=== PATIENT | male | born 1945 | race Caucasian/White ===

== ENCOUNTER 2019-08-14 | Emergency (ER) | payer MEDICARE ==
[2019-08-14 16:51] LABS: HEMOGLOBIN 11.7 g/dl (14.0-18.0); IMMATURE GRANULOCYTES 0.2 % (0.0-5.0); MEAN CELL VOLUME 111.1 fL CALC (80.0-100.0); MEAN CORPUSCULAR HGB 37.1 pG CALC (26.0-32.0); MEAN CORPUSCULAR HGB CONC 33.4 g/L CALC (32.0-36.0); NEUT# 2.49 thou/uL (1.82-7.42); RED BLOOD COUNT 3.15 mill/uL (4.70-6.10); RED CELL DISTRI WIDTH 12.8 % (11.5-15.5)
[2019-08-14 17:22] LABS: ALBUMIN 3.8 g/dL (3.2-5.0); ALKALINE PHOSPHATASE 58 u/l (38-126); ANION GAP 10 (6-22 (CALC)); BILIRUBIN, TOTAL 0.5 mg/dL (0.0-1.4); BUN 20 mg/dL (8-23); BUN/CREATININE RATIO 25 (12-20 (CALC)); CARBON DIOXIDE 29 mmol/l (22-30); CHLORIDE 100 mmol/l (95-108); CREATININE 0.8 mg/dL (0.7-1.3); GFR > 60 ML/MIN (>=60 (CALC)); GFR FOR AFR.AMER. > 60 ML/MIN (>=60 (CALC)); POTASSIUM 4.3 mmol/l (3.5-5.1); SGOT/AST 21 u/l (19-48); SODIUM 135 mmol/l (137-146); TOTAL PROTEIN 6.7 g/dL (6.3-8.2)
[2019-08-14] MEDS ORDERED: FOLIC ACID1 M1 PO (18:06)
[2019-08-14] MEDS ORDERED: LEVOTHYROXIN150 MC1 PO (18:06)
[2019-08-14] MEDS ORDERED: SINGULAIR10 MG PO (18:07)
[2019-08-14] MEDS ORDERED: ALBUTEROL0.5 % IN (18:08)
[2019-08-14] MEDS ORDERED: SPIRIVA RE1.25 MCG/A IN (18:08)
[2019-08-14] MEDS ORDERED: SYMBICORT 80-4.5MCG IN (18:09)
[2019-08-14] MEDS ORDERED: VIT B-COMPLX100 MG IJ (18:10)
[2019-08-14] MEDS ORDERED: MEMANTINE HYDROC5 MG PO (18:11)
[2019-08-14 18:27] LABS: URINE BILIRUBIN - DIPSTICK NEGATIVE (NEGATIVE); URINE BLOOD DIPSTICK NEGATIVE (NEGATIVE); URINE COLOR YELLOW; URINE GLUCOSE - DIPSTICK NEGATIVE (NEGATIVE); URINE KETONE NEGATIVE (NEGATIVE); URINE LEUK ESTERASE NEGATIVE (NEGATIVE); URINE NITRITE - DIPSTICK NEGATIVE (Negative); URINE PH 5.5 (4.5-8.0); URINE PROTEIN - DIPSTICK NEGATIVE (NEG-TRACE)
[2019-08-20] MEDS ORDERED: COREG6.25 MG PO (11:09)
[2019-08-20] MEDS ORDERED: SYNTHROID150 MCG PO (11:10)
[2019-08-20] MEDS ORDERED: B-121000 MC1 IM (11:10)
[2020-02-15] MEDS ORDERED: DIGOXIN0.125 MG PO (10:57)
[2020-02-15] MEDS ORDERED: PROVENTIL HFA IN (10:57)
[2020-02-15] MEDS ORDERED: ELIQUIS2.5 MG PO (10:59)
== END 2019-08-14 19:00 | disposition home or self-care (01) ==
DX: K40.90 Unilateral inguinal hernia, without obstruction or gangrene, not specified as recurrent (principal); J43.9 Emphysema, unspecified; G30.9 Alzheimer's disease, unspecified; F02.80 Dementia in other diseases classified elsewhere, unspecified severity, without behavioral disturbance, psychotic disturbance, mood disturbance, and anxiety
CPT/HCPCS: Q9967

== ENCOUNTER 2020-02-22 08:05 | Day surgery (SDC) | payer MEDICARE ==
[~2020-02-22 08:05] MED LIST: ALBUTEROL0.5 % IN; B-121000 MC1 IM; COREG6.25 MG PO; DIGOXIN0.125 MG PO; ELIQUIS2.5 MG PO; FOLIC ACID1 M1 PO; LEVOTHYROXIN150 MC1 PO; MEMANTINE HYDROC5 MG PO; PROVENTIL HFA IN; SINGULAIR10 MG PO; SPIRIVA RE1.25 MCG/A IN; SYMBICORT 80-4.5MCG IN; SYNTHROID150 MCG PO; VIT B-COMPLX100 MG IJ
[2020-02-22] MEDS ORDERED: PERCOCET 5/325M1 TAB PO (10:12)
[2020-02-22 11:12] VITALS: BP 128/69
== END 2020-02-22 12:00 | disposition home or self-care (01) ==
LOC: ORM 08:05
PROVIDERS: ATTEND Surgery
PROC: 0YU60JZ Supplement Left Inguinal Region with Synthetic Substitute, Open Approach (ICD-10-PCS; principal; 2020-02-22)
DX: K40.20 Bilateral inguinal hernia, without obstruction or gangrene, not specified as recurrent (principal); E83.119 Hemochromatosis, unspecified; Z99.81 Dependence on supplemental oxygen; Z11.59 Encounter for screening for other viral diseases
CPT/HCPCS: C9290; J0131; J1100

== ENCOUNTER 2020-02-24 10:16 | Inpatient (IN) | payer MEDICARE ==
[~2020-02-24] VITALS: Ht 167.6 cm; Wt 63.8 kg
[~2020-02-24 10:16] MED LIST changes: +PERCOCET 5/325M1 TAB PO
--- NOTE | 2020-02-24 10:22 | NUR ---
PATIENT TO ROOM VIA WHEELCHAIR AND PHYSICIAN NOTIFIED OF PATIENT STATUS
[2020-02-24 10:55] LABS: URINE BILIRUBIN - DIPSTICK NEGATIVE (NEGATIVE); URINE BLOOD DIPSTICK NEGATIVE (NEGATIVE); URINE COLOR YELLOW; URINE GLUCOSE - DIPSTICK NEGATIVE (NEGATIVE); URINE KETONE NEGATIVE (NEGATIVE); URINE LEUK ESTERASE NEGATIVE (NEGATIVE); URINE NITRITE - DIPSTICK NEGATIVE (Negative); URINE PROTEIN - DIPSTICK NEGATIVE (NEG-TRACE)
[2020-02-24 10:57] LABS: IMMATURE GRANULOCYTES 0.4 % (0.0-5.0); MEAN CELL VOLUME 115.4 fL CALC (80.0-100.0); MEAN CORPUSCULAR HGB 36.1 pG CALC (26.0-32.0); MEAN CORPUSCULAR HGB CONC 31.3 g/dL CAL (32.0-36.0); NEUT# 3.76 thou/uL (1.82-7.42); RED BLOOD COUNT 2.8 mill/uL (4.70-6.10); RED CELL DISTRI WIDTH 13.1 % (11.5-15.5)
[2020-02-24 10:58] LABS: HEMATOCRIT 32.3 % (39.0-50.0); HEMOGLOBIN 10.1 g/dl (14.0-18.0)
[2020-02-24 11:05] LABS: ALBUMIN 3.5 g/dL (3.2-5.0); ALKALINE PHOSPHATASE 57 u/l (38-126); ANION GAP 7 (6-22 (CALC)); BUN 16 mg/dL (8-23); BUN/CREATININE RATIO 20 (12-20 (CALC)); CARBON DIOXIDE 33 mmol/l (22-30); CHLORIDE 101 mmol/l (95-108); CREATININE 0.8 mg/dL (0.7-1.3); GFR > 60 ML/MIN (>=60 (CALC)); GFR FOR AFR.AMER. > 60 ML/MIN (>=60 (CALC)); POTASSIUM 4.1 mmol/l (3.5-5.1); SGOT/AST 19 u/l (19-48); SODIUM 136 mmol/l (137-146); TOTAL PROTEIN 6.4 g/dL (6.3-8.2)
[2020-02-24 11:11] LABS: BILIRUBIN, TOTAL 0.4 mg/dL (0.0-1.4)
--- NOTE | 2020-02-24 11:14 | NUR ---
PT PRESENTS WITH PAIN OF 0/10 WHEN AT REST LOCATED IN THE LEFT INGUINAL AREA. WHEN PT MOVES HE HAS PAIN OF 9/10. PT HAD SURG 02/22/20 TO REPAIR LEFT INGUINAL HERNIA. AROUND INCISION REDNESS, SWELLING, IS NOTED AND IS HOT TO THE TOUCH. NO DRAINAGE NOTED AT INCISION. AFIBRILE. AOX4. PT IS NOT IN ANY DISTRESS AND VITALS STABLE. DENIES SOB OR CHEST PAINS. PT PLACED ON O2 BECAUSE HE USUALLY IS ON O2 AT HOME. WILL CONTINUE TO MONITOR.
--- NOTE | 2020-02-24 12:30 | NUR ---
PT LAYING IN STRETCHER REQUESTING WARM BLANKET, REQUEST GRANTED. CALL LIGHT WITHIN REACH VITALS STABLE.
--- NOTE | 2020-02-24 13:40 | NUR ---
PT RESTING ON STRETCHER, ASKED TO BE REPOSITIONED. UPDATED ON PLAN OF CARE AND WAIT TIME.
--- NOTE | 2020-02-24 14:56 | NUR ---
REPORT REC FROM RACHEL ROSA.
--- NOTE | 2020-02-24 14:57 | NUR ---
GAVE REPORT TO PASCUAL
--- NOTE | 2020-02-24 15:10 | NUR ---
PT TRANSPORTED TO [facility] SURG STABLE AND IN NO DISTRESS. CARE ASSUMED TO OLIVIA Admission Note Report Given to: Transported by: Wheelchair X Stretcher Transported with: X Nurse Transporter Patent IV X O2 X Paper Cone Maker Location: ICU X MS2 WITH PATENT IV
--- NOTE | 2020-02-24 15:19 | NUR ---
PT ARRIVED VIA STRETCHER ACCOMPANIED BY RACHEL ROSA. PT A&O X3. PT POOR HISTORIAN, STATES "ASK MY ". O2 VIA NC @3L IN PLACE, PER PT HE IS O2 DEPENDENT AT HOME AT 2L. PT ADMITS TO HAVE SOME EPISODES OF FORGETFULLNESS. AFIB HEARD UPON AUSCULTATION WITH CLEAR/DIMINISHED BREATH SOUNDS. CANE USED AMBULATION AID AT HOME. BILAT HEARING AIDES IN PLACE WITH BOTH UPPER AND LOWER DENTURES IN PLACE AT WELL. LT INGUINAL HERNIA INCISION NOTED, WITH REDNESS,WARMTH AND BRUISING NOTED TO SITE AND SCROTUM. NO ACTIVE DRAINAGE NOTED. DERMABOND IN PLACE. ORIENTED PT TO ROOM. [facility] REFUSED. CALL LIGHT IN REACH. CONTINUE TO MONITOR.
[2020-02-24 15:34] VITALS: BP 150/82
--- NOTE | 2020-02-24 16:12 | NUR ---
PHONE CALL REC FROM PTS INES. INES ABLE TO PROVIDE PAST MED HX. AFIB HAS BEEN NEW ON ONSET. PER INES PT HAS HX OF DEMENTIA.
[2020-02-24 19:00] VITALS: BP 126/65
--- NOTE | 2020-02-24 19:10 | NUR ---
REPORT FROM ADAM RHOADES. PT NOTED SITTING UP AT BEDSIDE. ALERT AND ORIENTED. NO APPARENT DISTRESS NOTED. 02 @ 3L/M VIA NC. SHELL ASSEMBLER ON PLACE. IV SITE APPEARS HEALTHY WITH IV FLUIDS INFUSING. PT DENIES ANY PAIN OR DISCOMFORT AT THIS TIME. BRUISING NOTED TO LEFT GROIN AND SCROTUM. DISCUSSED POC. PT VERBALIZED UNDERSTANDING. CALL LIGHT WITHIN REACH. WILL CONTINUE TO MONITOR.
--- NOTE | 2020-02-24 23:18 | NUR ---
PT RESTING IN BED NO APPARENT DISTRESS NOTED. PT WAKES EASILY. DENIES ANY PAIN OR DISCOMFORT. WARM COMPRESS PROVIDED AT THIS TIME. PT DENIES ANY OTHER WANTS OR NEEDS. CALL LIGHT WITHIN REACH. WILL CONTINUE TO MONITOR.
[2020-02-24 23:30] VITALS: BP 142/79
--- NOTE | 2020-02-25 03:23 | NUR ---
PT RESTING IN BED. NO APPARENT DISTRESS NOTED. RESPIRATIONS EVEN AND UNLABORED. CALL LIGHT WITHIN REACH. WILL CONTINUE TO MONITOR.
[2020-02-25 04:00] VITALS: BP 128/78
[2020-02-25 05:06] LABS: HEMOGLOBIN 9.8 g/dl (14.0-18.0); IMMATURE GRANULOCYTES 0.4 % (0.0-5.0); MEAN CORPUSCULAR HGB CONC 31.6 g/dL CAL (32.0-36.0); NEUT# 3.42 thou/uL (1.82-7.42); RED BLOOD COUNT 2.72 mill/uL (4.70-6.10); RED CELL DISTRI WIDTH 12.8 % (11.5-15.5)
[2020-02-25 05:35] LABS: ALBUMIN 3.3 g/dL (3.2-5.0); ALKALINE PHOSPHATASE 55 u/l (38-126); ANION GAP 7 (6-22 (CALC)); BUN 11 mg/dL (8-23); BUN/CREATININE RATIO 14 (12-20 (CALC)); CARBON DIOXIDE 32 mmol/l (22-30); CHLORIDE 99 mmol/l (95-108); CREATININE 0.8 mg/dL (0.7-1.3); GFR > 60 ML/MIN (>=60 (CALC)); GFR FOR AFR.AMER. > 60 ML/MIN (>=60 (CALC)); POTASSIUM 4.2 mmol/l (3.5-5.1); SGOT/AST 15 u/l (19-48); SODIUM 134 mmol/l (137-146); TOTAL PROTEIN 5.9 g/dL (6.3-8.2)
[2020-02-25 05:37] LABS: BILIRUBIN, TOTAL 0.7 mg/dL (0.0-1.4)
[2020-02-25 07:27] VITALS: BP 147/85
--- NOTE | 2020-02-25 07:27 | NUR ---
PT LAYING IN BED. A&O X3. NO DISTRESS NOTED. O2 VIA NC @3L IN PLACE. CLEAR/DIMINISHED BREATH SOUNDS UPON AUSCULTATION. SKIN SURROUNDING INGUINAL HERNIA INCISION, ERYTHEMA STILL NOTED WITH BRUISING TO SCROTUM, BUT LESS THAN YESTERDAY, SLIGHTLY WARM TO THE TOUCH. PT STATES PAIN IS 4/10 AND DID NOT WANT ANY PAIN MEDICATION. WARM COMPRESS APPLIED. NO OTHER NEEDS AT THIS TIME. ASSESSMENT COMPLETED. DISCUSSED POC. CALL LIGHT IN REACH. CONTINUE TO MONITOR.
--- NOTE | 2020-02-25 08:07 | NUR ---
Patient is screened for rehab intervention. He is still being worked up for postop infection and therefore we suresh hold off on recommendations and defer to medical as well as follow him in interdisciplinary team meetings
--- NOTE | 2020-02-25 10:35 | NUR ---
PER PT HE WOULD LIKE TO WAIT UNTIL HIS ARRIVED BEFORE TAKING SENNA.
[2020-02-25 10:59] VITALS: BP 130/76
--- NOTE | 2020-02-25 12:12 | NUR ---
PT SITTING ON THE SIDE OF THE BED EATING LUNCH. NO DISTRESS OR NEEDS AT THIS TIME. CALL LIGHT IN REACH. CONTINUE TO MONITOR.
[2020-02-25 15:14] VITALS: BP 129/58
--- NOTE | 2020-02-25 17:53 | NUR ---
PT SITTING IN BED. NO DISTRESS OR NEEDS AT THIS TIME. CALL LIGHT IN REACH. CONTINUE TO MONITOR.
--- NOTE | 2020-02-25 19:10 | NUR ---
REPORT FROM ADAM RHOADES. PT NOTED RESTING IN BED. ALERT AND ORIENTED. NO APPARENT DISTRESS NOTED. 02 @ 3L/M VIA SD. TRUCK MANAGER ON PLACE. IV SITE APPEARS HEALTHY WITH IV FLUIDS INFUSING. PT DENIES ANY PAIN OR DISCOMFORT AT THIS TIME. BRUISING NOTED TO LEFT GROIN AND SCROTUM. DISCUSSED POC. PT VERBALIZED UNDERSTANDING. CALL LIGHT WITHIN REACH. WILL CONTINUE TO MONITOR.
[2020-02-25 19:20] VITALS: BP 125/70
--- NOTE | 2020-02-25 21:01 | NUR ---
PT MEDICATED ORDERED. NO APPARENT RESPIRATORY DISTRESS NOTED. 300ML CLEAR YELLOW URINE EMPTIED FROM URINAL AT THIS TIME. PT DENIES ANY CURRENT WANTS OR NEEDS. CALL LIGHT WITHIN REACH. WILL CONTINUE TO MONITOR.
[2020-02-25 23:35] VITALS: BP 132/79
--- NOTE | 2020-02-26 01:20 | NUR ---
PT RESTING IN BED WITH EYES CLOSED. NO APPARENT DISTRESS NOTED. RESPIRATIONS EVEN AND UNLABORED. CALL LIGHT WITHIN REACH. WILL CONTINUE TO MONITOR.
[2020-02-26 04:00] VITALS: BP 123/73
--- NOTE | 2020-02-26 05:44 | NUR ---
PT RESTING IN BED WITH EYES CLOSED. NO APPARENT DISTRESS NOTED. RESPIRATIONS EVEN AND UNLABORED. CALL LIGHT WITHIN REACH. WILL CONTINUE TO MONITOR.
[2020-02-26 05:58] LABS: ANION GAP 7 (6-22 (CALC)); BUN 11 mg/dL (8-23); BUN/CREATININE RATIO 13 (12-20 (CALC)); CARBON DIOXIDE 33 mmol/l (22-30); CHLORIDE 99 mmol/l (95-108); CREATININE 0.8 mg/dL (0.7-1.3); GFR > 60 ML/MIN (>=60 (CALC)); GFR FOR AFR.AMER. > 60 ML/MIN (>=60 (CALC)); MAGNESIUM 1.9 mg/dL (1.6-2.3); SODIUM 135 mmol/l (137-146)
[2020-02-26 06:05] LABS: HEMATOCRIT 30.8 % (39.0-50.0); HEMOGLOBIN 9.9 g/dl (14.0-18.0); MEAN CELL VOLUME 112.4 fL CALC (80.0-100.0); MEAN CORPUSCULAR HGB 36.1 pG CALC (26.0-32.0); MEAN CORPUSCULAR HGB CONC 32.1 g/dL CAL (32.0-36.0); RED BLOOD COUNT 2.74 mill/uL (4.70-6.10); RED CELL DISTRI WIDTH 12.6 % (11.5-15.5)
[2020-02-26 07:23] VITALS: BP 105/61
--- NOTE | 2020-02-26 07:23 | NUR ---
PT SITTING ON THE SIDE OF THE BED. A&O X3. O2 VIA NC @ 3L. NO DISTRESS OR NEEDS AT THIS TIME. PT REPORTS TO BE FEELING WELL THIS MORNING. CURRENTLY REMAINS AFEBRILE. SURROUNDING SKIN SURROUNDING THE HERNIA REPAIR BETTER IN APPEARANCE COMPARED TO YESTERDAY, NOT WARM TO THE TOUCH THIS MORNING, BRUISING STILL NOTED. NO OTHER NEEDS AT THIS TIME. ASSESSMENT COMPLETED. DISCUSSED POC. CALL LIGHT IN REACH. CONTINUE TO MONITOR.
[2020-02-26] MEDS ORDERED: BACTRIM DS1 TAB PO (10:37)
[2020-02-26 11:28] VITALS: BP 138/80
[2020-02-26 16:12] VITALS: BP 140/87
--- NOTE | 2020-02-26 16:14 | NUR ---
Discharge instructions given. Patient verbalizes understanding of same. Discharged in stable condition via Wheelchair to Home accompanied by staff and . All belongings sent with pt.
== END 2020-02-26 16:14 | disposition home or self-care (01) | DRG 863 ==
LOC: ED 10:16 → ED-I 13:30 → ED 13:53 → MS2 13:54
PROVIDERS: Nurse Practitioner; Student in an Organized Health Care Education/Training Program; ADMIT Internal Medicine; ATTEND Internal Medicine
DX: T81.41XA Infection following a procedure, superficial incisional surgical site, initial encounter (principal); L03.314 Cellulitis of groin; J44.9 Chronic obstructive pulmonary disease, unspecified; G30.9 Alzheimer's disease, unspecified; F02.80 Dementia in other diseases classified elsewhere, unspecified severity, without behavioral disturbance, psychotic disturbance, mood disturbance, and anxiety; E03.9 Hypothyroidism, unspecified; I48.91 Unspecified atrial fibrillation; E83.119 Hemochromatosis, unspecified; E53.8 Deficiency of other specified B group vitamins; Y83.8 Other surgical procedures as the cause of abnormal reaction of the patient, or of later complication, without mention of misadventure at the time of the procedure; Z79.01 Long term (current) use of anticoagulants; Z87.891 Personal history of nicotine dependence; Z11.59 Encounter for screening for other viral diseases
CPT/HCPCS: Q9967

== ENCOUNTER 2020-09-25 13:01 | Inpatient (IN) | payer MEDICARE ==
[~2020-09-25] VITALS: Ht 167.6 cm; Wt 60.8 kg
[2020-09-25] VITALS (7 sets, daily range): BP systolic 103–168; BP diastolic 57–79
[~2020-09-25 13:01] MED LIST changes: +BACTRIM DS1 TAB PO
--- NOTE | 2020-09-25 13:05 | NUR ---
PT TAKEN TO HIS ROOM VIA WHEELCHAIR
--- NOTE | 2020-09-25 13:28 | NUR ---
STROKE ALERT CALLED
[2020-09-25 13:58] LABS: GFR > 60 ML/MIN (>=60 (CALC)); GFR FOR AFR.AMER. > 60 ML/MIN (>=60 (CALC))
[2020-09-25 13:59] LABS: HEMATOCRIT 34.3 % (39.0-50.0); HEMOGLOBIN 10.7 g/dl (14.0-18.0); IMMATURE GRANULOCYTES 1.1 % (0.0-5.0); MEAN CELL VOLUME 118.3 fL CALC (80.0-100.0); MEAN CORPUSCULAR HGB 36.9 pG CALC (26.0-32.0); MEAN CORPUSCULAR HGB CONC 31.2 g/dL CAL (32.0-36.0); NEUT# 3.12 thou/uL (1.82-7.42); RED BLOOD COUNT 2.9 mill/uL (4.70-6.10); RED CELL DISTRI WIDTH 12.7 % (11.5-15.5)
[2020-09-25 14:16] LABS: ALBUMIN 3.8 g/dL (3.2-5.0); ALKALINE PHOSPHATASE 52 u/l (38-126); ANION GAP 8 (6-22 (CALC)); BILIRUBIN, TOTAL 0.9 mg/dL (0.0-1.4); BUN 25 mg/dL (8-23); BUN/CREATININE RATIO 30 (12-20 (CALC)); CARBON DIOXIDE 36 mmol/l (22-30); CHLORIDE 101 mmol/l (95-108); CREATININE 0.8 mg/dL (0.7-1.3); GFR > 60 ML/MIN (>=60 (CALC)); GFR FOR AFR.AMER. > 60 ML/MIN (>=60 (CALC)); POTASSIUM 4.2 mmol/l (3.5-5.1); SGOT/AST 26 u/l (19-48); SODIUM 140 mmol/l (137-146); TOTAL PROTEIN 6.8 g/dL (6.3-8.2)
--- NOTE | 2020-09-25 14:30 | NUR ---
PT IS LAYING IN BED RESTING, AOX4. DENIES OF ANY PAIN AND IS UPDATED ON PENDIING ADMISSION. O2 CONTINUES TO BE INITIATED FOR PATIENT
[2020-09-25] MEDS ORDERED: COREG25 MG PO (14:33)
--- NOTE | 2020-09-25 15:30 | NUR ---
PT RESTING WITH EYES CLOSED. DENIES ANY NEEDS AT THIS TIME
--- NOTE | 2020-09-25 16:00 | NUR ---
WAS UNABLE TO COLLECT A URINE SPECIMEN, NOTIFIED
--- NOTE | 2020-09-25 16:24 | NUR ---
GAVE REPORT TO VINICIUS
--- NOTE | 2020-09-25 16:40 | NUR ---
PT TO ICU ROOM 2 VIA ER STRTCHER ACCOMPANIED BY ER NURSE. PT STATED HE COULD NOT WALK FROM STRETCHER TO BED DUE TO DIZZINESS UPON STANDING. PT WAS ABLE TO STAND AND TURN TO SIT ON BED. URINE SPECIMEN OBTAINED PER MD BROTHERS AT THIS TIME. HISTROCasie LIMITED PT STATES "MY ANSWERS ALL THE QUESTIONS". PT IS ALERT AND ORIENTED X3. PT WAS NOT ABLE TO STATE THE MONTH HOWEVER STATING THAT I AM A SNOW BIRD I DON'T KEEP UP WITH THAT. NIH COMPLETED AT THIS TIME. PT DOES ALSO HAVE A HISTORY OF DEMENTIA WELL. ADMISSION ASSESSMENT COMPLETED AT THIS TIME. IV PATENT X1. PT ON O2 2L NC. WEARS HOME O2. ORIENTED TO ROOM AND UNITS. CALL LIGHT IN REACH. WILL CONTINUE TO MONITOR.
--- NOTE | 2020-09-25 16:40 | NUR ---
PT TRANSPORTED TO ICU STABLE AND IN NO DISTRESS. CARE ASSUMED TO VINICIUS Admission Note Report Given to: VINICIUS Transported by: Wheelchair X Stretcher Transported with: X Nurse Transporter X Patent IV X O2 X Student Union Consultant Location: X ICU MS2
--- NOTE | 2020-09-25 16:57 | NUR ---
SPEECH THERAPY AT BEDSIDE.
[2020-09-25 17:05] LABS: URINE BILIRUBIN - DIPSTICK NEGATIVE (NEGATIVE); URINE BLOOD DIPSTICK NEGATIVE (NEGATIVE); URINE COLOR YELLOW; URINE GLUCOSE - DIPSTICK NEGATIVE (NEGATIVE); URINE KETONE NEGATIVE (NEGATIVE); URINE LEUK ESTERASE NEGATIVE (NEGATIVE); URINE NITRITE - DIPSTICK NEGATIVE (Negative); URINE PH 5.5 (4.5-8.0); URINE PROTEIN - DIPSTICK NEGATIVE (NEG-TRACE)
--- NOTE | 2020-09-25 17:35 | NUR ---
ORTHOSTATIC BPS OBTAINED AT THIS TIME LYING- BP 137/74 HR 75 SITTING- BP 148/73 HR 73 STANDING- BP 116/57 HR 84 PHONED Dominic WALLACE APRN REFERECNCE IVF AND DIET CHANGE. NEW ORDERS RECEIVED.
--- NOTE | 2020-09-25 18:03 | NUR ---
pt sitting up eating dinner at this time. [facility] will continue to monitor.
--- NOTE | 2020-09-25 19:20 | NUR ---
RESTING IN BED. AWAKE, ALERT AND ORIENTED X3. ANSWERS QUESTIONS APPROPRIATELY. SPEECH CLEAR. FACE SYMMETRICAL. FOLLOWS DIRECTIONS. HG AND P/P EQUAL AND FIRM. NO DRIFT NOTED. DENIES HEADACHE, NUMBNESS, TINGLING OR VISUAL DISTURBANCES. RESP NON-LABORED AT REST. SLT MIDDLETON WITH EXERTION. PATIENT STATES HE IS O2 DEPENDENT AT HOME AND USES NEBS. O2 ON AT 2 L NC. BREATH SOUNDS CLEAR THROUGHOUT LUNG MATHIAS. KNEE HI TEDS ON BILATERALLY. NO PERIPHERAL EDEMA,PULSES PALPABLE. IV IN LAC SITE BENIGN, NS INFUSING AT 75 ML/HR. EXHAUST EMISSIONS INSPECTOR SHOWS AFLUTTER. DISCUSSED PLAN OF CARE. DENIES NEEDS AT THIS TIME. CALL BLACKMAN IN REACH.
--- NOTE | 2020-09-25 22:00 | NUR ---
SITS AT SIDE OF BED TO VOID. VOIDING CLEAR PEDRO URINE.
[2020-09-26] VITALS (9 sets, daily range): BP systolic 116–148; BP diastolic 61–85
--- NOTE | 2020-09-26 00:35 | NUR ---
PATIENT SITTING AT SIDE OF BED WITH O2 OFF. O2 SAT DROPPED TO 80% WITHOUT O2. O2 REAPPLIED AND GRADUAL O2 SAT INCREASED TO 92-94% PATIENT C/O BEING UNCOMFORTABLE LYING IN THE BED, OFFERED TO ASSIST TO RECLINER BUT PATIENT REFUSED. STATES HE WOULD JUST SIT AT SIDE OF BED FOR AWHILE. TYLENOL 650 MG PO GIVEN FOR GENERALIZED DISCOMFORTS. SONATA 5 MG PO GIVEN FOR SLEEP.
--- NOTE | 2020-09-26 02:00 | NUR ---
RESTING WITH EYES CLOSED. RESP NON-LABORED.
--- NOTE | 2020-09-26 04:00 | NUR ---
SLEEPS FOR SHORT INTERVALS. FOUND SITTING AT SIDE OF BED FREQ. BED ALARM IS ON. REMINDED NOT TO GET UP OOB ON HIS OWN. PATIENT VERBALIZES UNDERSTANDING. VSS.
[2020-09-26 05:41] LABS: HEMATOCRIT 35.1 % (39.0-50.0); IMMATURE GRANULOCYTES 0.4 % (0.0-5.0); MEAN CELL VOLUME 118.2 fL CALC (80.0-100.0); MEAN CORPUSCULAR HGB CONC 31.3 g/dL CAL (32.0-36.0); NEUT# 3.34 thou/uL (1.82-7.42); RED BLOOD COUNT 2.97 mill/uL (4.70-6.10); RED CELL DISTRI WIDTH 12.6 % (11.5-15.5)
--- NOTE | 2020-09-26 06:00 | NUR ---
VSS. PATIENT REQUESTS NEB TREATMENT. CALLED RT. IV SITE MAINTAINED IN LAC WITH NS INFUSING AT 75 ML/HR WITHOUT INCIDENT.
[2020-09-26 06:18] LABS: ALBUMIN 3.7 g/dL (3.2-5.0); ALKALINE PHOSPHATASE 60 u/l (38-126); ANION GAP 9 (6-22 (CALC)); BILIRUBIN, TOTAL 0.9 mg/dL (0.0-1.4); BUN 20 mg/dL (8-23); BUN/CREATININE RATIO 29 (12-20 (CALC)); CALCULATED LDLCHOLESTEROL 60 mg/dL (62-129 (CALC)); CARBON DIOXIDE 36 mmol/l (22-30); CHLORIDE 99 mmol/l (95-108); CHOLESTEROL HDL RATIO 2.1 (<4.4 (CALC)); CREATININE 0.7 mg/dL (0.7-1.3); GFR > 60 ML/MIN (>=60 (CALC)); GFR FOR AFR.AMER. > 60 ML/MIN (>=60 (CALC)); HDL CHOLESTEROL 63 mg/dL (>=40); MAGNESIUM 2.2 mg/dL (1.6-2.3); POTASSIUM 4.3 mmol/l (3.5-5.1); SGOT/AST 22 u/l (19-48); SODIUM 140 mmol/l (137-146); TOTAL CHOLESTEROL 135 mg/dl (0-199); TOTAL PROTEIN 6.5 g/dL (6.3-8.2); TOTAL TRIGLYCERIDES 58 mg/dl (30-149); VLDL CHOLESTROL 12 mg/dl (0-38 (CALC))
--- NOTE | 2020-09-26 06:45 | NUR ---
REPORT RECEIVED FROM MARY. CARE ASSUMED.
--- NOTE | 2020-09-26 07:00 | NUR ---
PT SITTING UP ON SIDE OF BED. PT IS ALERT AND ORIENTED X3. SHIFT ASSESSMENT COMPLETED AT THIS TIME. IV PATENT X 1. CALL LIGHT IN REACH. WILL CONTINUE TO MONTIOR.
--- NOTE | 2020-09-26 08:22 | NUR ---
DR JERONIMO AT BEDSIDE AT THIS TIME
--- NOTE | 2020-09-26 08:31 | NUR ---
Pt seen on 09/25/20 by for admission evaluation. Goals stated below: Pt to be seen 3x/week for entirety of his admission 1. Pt will tolerate soft solids with minimal to no oral residue. 2. Pt will continue to tolerate thin liquids via straw without overt s/s or aspiration. 3. Pt will use learned strategies (i.e. alternating solids and liquids, multiple swallows, and effortful swallow) to reduce oral residue and progress to regular solids Pt presented with dentures that were adequately cleaned, however had thick mucous like oral secretions on his tongue and gums. Pt should participate in oral care 2-3 times per day.
--- NOTE | 2020-09-26 10:19 | NUR ---
OCCUPATIONAL THERAPY AT BEDSIDE.
--- NOTE | 2020-09-26 10:36 | NUR ---
SPOUSE PHONED FOR UPDATE. CODE VERIFIED. UPDATED ON PATIENT.
--- NOTE | 2020-09-26 10:47 | NUR ---
RADIOLOGY AT BEDSIDE FOR PORTABLE CXR
--- NOTE | 2020-09-26 12:02 | NUR ---
DIETARY AT BEDSIDE PT REQUESTED AN ENSURE. SUPERVISOR WIRE ROPE FABRICATION PROVIDED IT. CALL LIGHT IN REACH. WILL CONTINUE TO MONITOR.
--- NOTE | 2020-09-26 13:30 | NUR ---
ROOM ASSIGNMENT RECEIVED REPORT GIVEN TO USMAN ROSA.
--- NOTE | 2020-09-26 13:49 | NUR ---
PHYSICAL THERAPY AT BEDSIDE AT THIS TIME.
--- NOTE | 2020-09-26 13:50 | NUR ---
WHILE PT IN ROOM BP OBTAINED WHILE STANDING. BP 87/57. DR JERONIMO NOTIFIED. USMAN UPDATED WELL.
--- NOTE | 2020-09-26 13:56 | NUR ---
PT TO [facility] VIA WHEELCHAIR. PT TOLERATED TRANSFER WELL.L
--- NOTE | 2020-09-26 13:56 | NUR ---
PATIENT RECEIVED FROM ICU REPORT RECEIVED FROM VINICIUS ROSA AT THIS TIME. PATIENT ORIENTED TO ROOM AND NEW SURROUNDINGS AT THIS TIME. SIDERAIL ARE UP CALL LIGHT WITHIN REACH. 02 ON AT 3 LITERS AT THIS TIME.
--- NOTE | 2020-09-26 14:45 | NUR ---
PATIENT DOWN TO MRI AT THIS TIME VIA WHEELCHAIR.
--- NOTE | 2020-09-26 16:06 | NUR ---
PATIENT LAYING IN BED AT THIS TIME WATCHING TV PATIENT ALERT TO NAME AND PLACE AT THIS TIME. O2 ON AT 2 LITERS TELE MONITOR ON AND BEING MONITORED BY ED. SIDERAILS ARE UP X2 CALL LIGHT WITHIN REACH AND BED ALARM ACTIVATED AT THIS TIME. IV SITE REMOVED DUE TO LEAKING AT THIS TIME.
--- NOTE | 2020-09-26 19:28 | NUR ---
RESP REPORTED GOING INTO PT'S ROOM AND HIM APPEARING MORE CONFUSED THAN TYPICAL AND STATED THAT HE HAD HIS O2 OFF. I ENTERED THE ROOM, HE IS SITTING ON THE SIDE OF THE BED WITH OXYGEN ON, ANSWERED QUESTIONS APPROPRIATELY AND ASKED FOR COFFEE. I INSTRUCTED HIM TO KEEP HIS OXYGEN ON, HE REPORTS NOT KNOWING WHEN IT "FALLS OFF." HE ASKED IF WE HAVE A MONITOR TO ALERT US TO OXYGEN DROPPING, I EXPLAINED TO HIM DID RESP THERAPIST THAT WE DO NOT HAVE THAT HERE ON MED SURG UNIT, THAT HE NEEDS TO KEEP IT ON AT ALL TIMES. VERBALIZED UNDERSTANDING, BUT STATED THAT WE SHOULD HAVE THAT. SAT 92% ON OXYGEN AT THIS TIME. PT PROVIDED COFFEE AT THIS TIME. LEFT SITTING ON THE SIDE OF THE BED WITH OXYGEN ON.
--- NOTE | 2020-09-26 20:17 | NUR ---
PT MEDICATED ORDERS PROVIDE, LUNG SOUNDS ARE VERY DIM, BUT OTHERWISE CLEAR TO AUSCULTATION. OXYGEN IS IN PLACE TO NARES. PT LOC AT THIS TIME, NO S/O OF CONFUSION OBSERVED AT THIS TIME. PT IS LAYING IN BED WITH URINAL ON BST, INSTRUCTED HIM TO USE HIS CALL LIGHT FOR ASSISTANCE WHEN HE NEEDS ASSISTANCE, VERBALIZED UNDERSTANDING. BED ALARM IS ON FOR SAFETY PRECAUTIONS.
[2020-09-27] VITALS: BP 130/66
--- NOTE | 2020-09-27 00:25 | NUR ---
PT ASSISTED STANDING AT BEDSIDE TO USE URINAL. PT IS VERY WEAK AND CAN BARELY STAND ON HIS OWN, HE BECOMES VERY SOB UPON STANDING. PT NEEDS ASSISTANCE USING URINAL, UNABLE TO NAVIGATE HIMSELF. OXYGEN IS ON. PT ASSISTED BACK INTO BED. RESP CALLED FOR BREATHING TREATMENT PER PT REQUEST AT THIS TIME. PT STATES, "I JUST WISH I KNEW WHAT WAS WRONG WITH ME." PT SPENDS QUITE A BIT OF TIME SITTING ON THE SIDE OF THE BED LEANING ON BST BREATHING PURSED LIP BREATHING, OXYGEN SAT 92-94% ON 2-3L AND REPORTS BEING HOME DEPENDENT ON OXYGEN.
--- NOTE | 2020-09-27 02:15 | NUR ---
PT HEARD CALLING OUT FOR HELP. HE WAS FOUND SITTING ON THE SIDE OF THE BED, OPPOSITE OF HIS TABLE, IVF AND OXYGEN. HE WAS DISTRESSED, CONFUSED, I ATTEMPTED TO REORIENT HIM TO CIRCUMSTANCE AND LOCATION. PT SETTLED BACK INTO THE BED, EYES ARE CLOSED. CALL LIGHT W/IN REACH AND BED ALARM IS ON.
--- NOTE | 2020-09-27 03:00 | NUR ---
PT WAS HEARD CALLING OUT FOR HELP. GAS LINE REPAIRER IN WITH PT AT THIS TIME.
[2020-09-27 04:00] VITALS: BP 149/77
[2020-09-27 05:51] LABS: HEMATOCRIT 32.8 % (39.0-50.0); HEMOGLOBIN 10.4 g/dl (14.0-18.0); IMMATURE GRANULOCYTES 0.2 % (0.0-5.0); MEAN CELL VOLUME 117.6 fL CALC (80.0-100.0); MEAN CORPUSCULAR HGB 37.3 pG CALC (26.0-32.0); MEAN CORPUSCULAR HGB CONC 31.7 g/dL CAL (32.0-36.0); NEUT# 3.42 thou/uL (1.82-7.42); RED BLOOD COUNT 2.79 mill/uL (4.70-6.10); RED CELL DISTRI WIDTH 12.7 % (11.5-15.5)
[2020-09-27 06:14] LABS: ALBUMIN 3.3 g/dL (3.2-5.0); ALKALINE PHOSPHATASE 58 u/l (38-126); ANION GAP 6 (6-22 (CALC)); BILIRUBIN, TOTAL 0.8 mg/dL (0.0-1.4); BUN 17 mg/dL (8-23); BUN/CREATININE RATIO 26 (12-20 (CALC)); CARBON DIOXIDE 36 mmol/l (22-30); CHLORIDE 99 mmol/l (95-108); CREATININE 0.6 mg/dL (0.7-1.3); GFR > 60 ML/MIN (>=60 (CALC)); GFR FOR AFR.AMER. > 60 ML/MIN (>=60 (CALC)); MAGNESIUM 2.1 mg/dL (1.6-2.3); POTASSIUM 4.1 mmol/l (3.5-5.1); SGOT/AST 19 u/l (19-48); SODIUM 138 mmol/l (137-146); TOTAL PROTEIN 5.9 g/dL (6.3-8.2)
[2020-09-27 08:00] VITALS: BP 128/80
--- NOTE | 2020-09-27 08:15 | NUR ---
PT SEEN SITTING UP IN BED DANGLING, LEANS OVER BEDSIDE TABLE. PT IS ALERT, ORIENTED X 1-2. LUNGS CLEAR BUT DIMINISHED, 2 LPM NC.
--- NOTE | 2020-09-27 10:25 | NUR ---
Pt disoriented and confused, verified full name and by wrist band. Pt was instructed in performing grooming activity including combing his hair, washing his face and dentures. Pt combed his hair while alternating hands, however he did verbalized having trouble lifting his L hand due to feeling weaker on the L side. Pt washed his face with a washcloth and brushed his dentures. Pt performed tasks with Set Up and VC's for encouragement. [facility] score 15
[2020-09-27 11:12] VITALS: BP 101/56
[2020-09-27 11:26] VITALS: BP 118/65
[2020-09-27 11:27] VITALS: BP 100/50; BP 110/60
--- NOTE | 2020-09-27 12:43 | NUR ---
Pt seen upright at 90 degrees in bed upon entry of the STUDIO OPERATION ENGINEER. He was A&O x3. Pt requested not to eat solid foods as he was not hungry. He agreed to trials of thin liquids. Pt followed instructions for effortful swallow and repeated instructions back to the STUDIO OPERATION ENGINEER for improved meal time strategies. Pt successfully repeated instructions to alternate between liquids and solids as well as using more effort to improve oral and phayrngeal clearance.
[2020-09-27] MEDS ORDERED: COREG6.25 MG PO (15:05)
--- NOTE | 2020-09-27 15:33 | NUR ---
PT HAS BEEN CLEARED FOR DISCHARGE TODAY. HIS HAD CALLED EARLIER TODAY AND HAS SINCE THEN BEEN UPDATED BY GROUP EXERCISE INSTRUCTOR. PT READIED FOR DISCHARGE, IV REMOVED, TELE REMOVED.
--- NOTE | 2020-09-27 15:43 | NUR ---
pt is being discharged to SNF
--- NOTE | 2020-09-27 15:44 | NUR ---
pt was sitting on bed with belongings packed waiting for his ride to SNF
== END 2020-09-27 15:47 | DRG 312 ==
LOC: ED 13:01 → ED-I 15:12 → ED 15:44 → ICU 15:45 → MS2 09-26 13:56
PROVIDERS: Family Medicine; Nurse Practitioner; ADMIT Internal Medicine; ATTEND Internal Medicine
DX: I95.1 Orthostatic hypotension (principal); E86.0 Dehydration; I48.91 Unspecified atrial fibrillation; J43.9 Emphysema, unspecified; E83.119 Hemochromatosis, unspecified; G30.9 Alzheimer's disease, unspecified; F02.80 Dementia in other diseases classified elsewhere, unspecified severity, without behavioral disturbance, psychotic disturbance, mood disturbance, and anxiety; E03.9 Hypothyroidism, unspecified; R53.1 Weakness; R63.4 Abnormal weight loss; S00.01XA Abrasion of scalp, initial encounter; S80.211A Abrasion, right knee, initial encounter; S80.212A Abrasion, left knee, initial encounter; W18.30XA Fall on same level, unspecified, initial encounter; Z68.21 Body mass index [BMI] 21.0-21.9, adult; Z79.01 Long term (current) use of anticoagulants; Z20.822 Contact with and (suspected) exposure to COVID-19; Z87.891 Personal history of nicotine dependence
CPT/HCPCS: Q9967

== ENCOUNTER 2020-12-29 10:50 | Emergency (ER) | payer MEDICARE ==
[~2020-12-29] VITALS: Ht 167.6 cm; Wt 63.0 kg
[~2020-12-29 10:50] MED LIST changes: +COREG25 MG PO
[2020-12-29 11:41] LABS: HEMATOCRIT 36.8 % (39.0-50.0); HEMOGLOBIN 11.2 g/dl (14.0-18.0); IMMATURE GRANULOCYTES 0.2 % (0.0-5.0); MEAN CELL VOLUME 123.1 fL CALC (80.0-100.0); MEAN CORPUSCULAR HGB 37.5 pG CALC (26.0-32.0); MEAN CORPUSCULAR HGB CONC 30.4 g/dL CAL (32.0-36.0); NEUT# 3.26 thou/uL (1.82-7.42); RED BLOOD COUNT 2.99 mill/uL (4.70-6.10); RED CELL DISTRI WIDTH 13.1 % (11.5-15.5)
--- NOTE | 2020-12-29 11:50 | NUR ---
PLACED PT ON BIPAP PER ABG RESULTS. PT TO LWELL AT THIS TIME. NO ACUTE DISTRES NOTED. MD AND RN AWARE. DRIER TENDER NAPHTHALENE TO MONITOR.
[2020-12-29 11:57] LABS: ALBUMIN 3.7 g/dL (3.2-5.0); ALKALINE PHOSPHATASE 59 u/l (38-126); BILIRUBIN, TOTAL 0.5 mg/dL (0.0-1.4); BUN 27 mg/dL (8-23); BUN/CREATININE RATIO 34 (12-20 (CALC)); CHLORIDE 98 mmol/l (95-108); CREATININE 0.8 mg/dL (0.7-1.3); GFR > 60 ML/MIN (>=60 (CALC)); GFR FOR AFR.AMER. > 60 ML/MIN (>=60 (CALC)); LIPASE 21 u/l (23-300); POTASSIUM 4.3 mmol/l (3.5-5.1); SGOT/AST 24 u/l (19-48); SODIUM 142 mmol/l (137-146); TOTAL PROTEIN 6.8 g/dL (6.3-8.2)
[2020-12-29] MEDS ORDERED: COREG25 MG PO (11:58)
[2020-12-29 12:00] LABS: ACT PARTIAL THROMBO TIME 26.4 SECONDS (20.0-32.5); INTERNATIONAL NORMALIZED RATIO 1.1 RATIO (0.7-1.3); PROTHROMBIN TIME 10.9 SECONDS (9.0-12.5)
[2020-12-29 12:05] LABS: ANION GAP 4 (6-22 (CALC))
[2020-12-29 12:07] LABS: CARBON DIOXIDE 44 mmol/l (22-30)
[2020-12-29 13:07] VITALS: BP 131/72
== END 2020-12-29 13:09 ==
LOC: ED 10:50
PROC: 5A09357 Assistance with Respiratory Ventilation, Less than 24 Consecutive Hours, Continuous Positive Airway Pressure (ICD-10-PCS; principal; 2020-12-29)
DX: S00.83XA Contusion of other part of head, initial encounter (principal); J96.92 Respiratory failure, unspecified with hypercapnia; J96.91 Respiratory failure, unspecified with hypoxia; J43.9 Emphysema, unspecified; F03.90 Unspecified dementia, unspecified severity, without behavioral disturbance, psychotic disturbance, mood disturbance, and anxiety; I48.91 Unspecified atrial fibrillation; E83.119 Hemochromatosis, unspecified; W18.39XA Other fall on same level, initial encounter; Y93.89 Activity, other specified; Z79.01 Long term (current) use of anticoagulants; Z99.81 Dependence on supplemental oxygen; Z20.822 Contact with and (suspected) exposure to COVID-19

== ENCOUNTER 2021-01-04 08:03 | Emergency (ER) | payer MEDICARE ==
[~2021-01-04] VITALS: Ht 167.6 cm; Wt 68.0 kg
[2021-01-04 08:43] LABS: HEMATOCRIT 38.3 % (39.0-50.0); HEMOGLOBIN 12.2 g/dl (14.0-18.0); IMMATURE GRANULOCYTES 0.5 % (0.0-5.0); MEAN CELL VOLUME 116.1 fL CALC (80.0-100.0); MEAN CORPUSCULAR HGB CONC 31.9 g/dL CAL (32.0-36.0); NEUT# 4.12 thou/uL (1.82-7.42); RED BLOOD COUNT 3.3 mill/uL (4.70-6.10); RED CELL DISTRI WIDTH 12.7 % (11.5-15.5)
[2021-01-04 08:53] LABS: ALBUMIN 3.2 g/dL (3.2-5.0); ALKALINE PHOSPHATASE 53 u/l (38-126); BILIRUBIN, TOTAL 0.7 mg/dL (0.0-1.4); BUN 22 mg/dL (8-23); BUN/CREATININE RATIO 36 (12-20 (CALC)); C-REACTIVE PROTEIN 0.6 mg/dL (0-0.9); CHLORIDE 93 mmol/l (95-108); CREATININE 0.6 mg/dL (0.7-1.3); GFR > 60 ML/MIN (>=60 (CALC)); GFR FOR AFR.AMER. > 60 ML/MIN (>=60 (CALC)); MAGNESIUM 2.2 mg/dL (1.6-2.3); POTASSIUM 4.4 mmol/l (3.5-5.1); SGOT/AST 21 u/l (19-48); SODIUM 137 mmol/l (137-146); TOTAL PROTEIN 5.7 g/dL (6.3-8.2)
[2021-01-04 08:57] LABS: ANION GAP 4 (6-22 (CALC))
[2021-01-04 09:07] LABS: CARBON DIOXIDE 44 mmol/l (22-30)
[2021-01-04 13:37] VITALS: BP 142/75
== END 2021-01-04 13:38 ==
LOC: ED 08:03
PROVIDERS: Emergency Medicine
DX: R09.02 Hypoxemia (principal); J43.9 Emphysema, unspecified; E03.9 Hypothyroidism, unspecified; I48.91 Unspecified atrial fibrillation; G30.9 Alzheimer's disease, unspecified; F02.80 Dementia in other diseases classified elsewhere, unspecified severity, without behavioral disturbance, psychotic disturbance, mood disturbance, and anxiety; E53.8 Deficiency of other specified B group vitamins; E83.119 Hemochromatosis, unspecified; Z79.01 Long term (current) use of anticoagulants; Z20.822 Contact with and (suspected) exposure to COVID-19

== ENCOUNTER 2021-03-22 11:58 | Observation (INO) | payer MEDICARE ==
[~2021-03-22] VITALS: Ht 167.6 cm; Wt 65.0 kg
--- NOTE | 2021-03-22 12:02 | NUR ---
PT TO ROOM VIA WHEELCHAIR ACCOMPANIED BY .
[2021-03-22 13:13] LABS: HEMATOCRIT 34.8 % (39.0-50.0); IMMATURE GRANULOCYTES 0.3 % (0.0-5.0); MEAN CORPUSCULAR HGB 38.9 pG CALC (26.0-32.0); MEAN CORPUSCULAR HGB CONC 31.6 g/dL CAL (32.0-36.0); NEUT# 2.52 thou/uL (1.82-7.42); RED BLOOD COUNT 2.83 mill/uL (4.70-6.10)
[2021-03-22 13:30] LABS: ALBUMIN 3.5 g/dL (3.2-5.0); ALKALINE PHOSPHATASE 61 u/l (38-126); BUN 17 mg/dL (8-23); BUN/CREATININE RATIO 24 (12-20 (CALC)); CHLORIDE 94 mmol/l (95-108); CREATININE 0.7 mg/dL (0.7-1.3); GFR > 60 ML/MIN (>=60 (CALC)); GFR FOR AFR.AMER. > 60 ML/MIN (>=60 (CALC)); POTASSIUM 4.2 mmol/l (3.5-5.1); SGOT/AST 18 u/l (19-48); SODIUM 136 mmol/l (137-146); TOTAL PROTEIN 6.5 g/dL (6.3-8.2)
[2021-03-22 13:34] LABS: ANION GAP 7 (6-22 (CALC)); CARBON DIOXIDE 39 mmol/l (22-30)
[2021-03-22 13:35] LABS: BILIRUBIN, TOTAL 0.4 mg/dL (0.0-1.4)
--- NOTE | 2021-03-22 13:35 | NUR ---
URINE SPECIMEN OBTAINED. PT STOOD AND USED URINAL W/ASSIST.
[2021-03-22 14:14] LABS: URINE BILIRUBIN - DIPSTICK NEGATIVE (NEGATIVE); URINE BLOOD DIPSTICK NEGATIVE (NEGATIVE); URINE COLOR YELLOW; URINE GLUCOSE - DIPSTICK NEGATIVE (NEGATIVE); URINE KETONE NEGATIVE (NEGATIVE); URINE LEUK ESTERASE NEGATIVE (NEGATIVE); URINE PROTEIN - DIPSTICK NEGATIVE (NEG-TRACE); URINE SPECIFIC GRAVITY 1.025
[2021-03-22 14:17] LABS: URINE NITRITE - DIPSTICK NEGATIVE (Negative)
--- NOTE | 2021-03-22 15:03 | NUR ---
PT ADVISED OF CONTINUED WAIT TIME FOR TEST RESULTS. SPOUSE AT BEDSIDE. PT SATS 98% 2L/M VIA IA
--- NOTE | 2021-03-22 16:47 | NUR ---
IV LASIX PROVIDED. BSC PROVIDED. CALL LIGHT GIVEN TO PT. SPOUSE AT BEDSIDE.
--- NOTE | 2021-03-22 17:30 | NUR ---
PT CONTINUES ON O2 2L/M VIA NC. NEB PROVIDED ORDERED. BSC AT BEDSIDE.
[2021-03-22 20:00] VITALS: BP 118/53
--- NOTE | 2021-03-22 20:06 | NUR ---
ATTEMPTED TO DO PHYSICAL ASSESSMENT AND PT. SWATTED AT STAFF MEMBER AND YELLING; CHARGE NURSE AWARE UNABLE TO DO ADMISSION ASSESSMENT. PT. REFUSES TO ANSWER ANY QUESTIONS AND SAYS HE DOES NOT KNOW PMH.
--- NOTE | 2021-03-22 20:15 | NUR ---
PT. IS A LITTLE LESS AGGITATED AND ALLOWED RN TO DO BRIEF ASSESSMENT. PT. ASSISTED TO AND FROM BSC. ALL PMH OBTAINED FROM PREVIOUS VISIT. ED NURSE TO CONTINUE CARE.
--- NOTE | 2021-03-22 20:53 | NUR ---
BED ALARM PLACED FOR SAFETY.
--- NOTE | 2021-03-22 21:47 | NUR ---
PT RESTING ON STRETCHER WITH EYES CLOSED. VSS. FLUIDS VIA PUMP TO HEALTHY IV SITE. RESP EVEN UNLABORED APPEARS COMFORTABLE. RESPONDS TO TACTILE STIMULI.
--- NOTE | 2021-03-22 22:00 | NUR ---
RESUMED CARE OF PT.
--- NOTE | 2021-03-22 22:40 | NUR ---
[id number] WITH AND SHE IS ADAMENT ABOUT PT. NEEDING TO BE ON BIPAP PER SHE SPOKE WITH ER PHYSICIAN EARLIER. CALLED AND SPOKE WITH SUGARCANE RESEARCH TECHNICIAN MD AND PER MD HE WILL CALL AND SPEAK WITH HER.
--- NOTE | 2021-03-22 23:32 | NUR ---
RT ATTEMPTED TO PLACE PT. ON BIPAP AND PT. REMOVED MASK AND BEGIN TO SWAT AT STAFF, AND WAS VERY AGGITATED PT. IS NON-COMPLIANT WITH BIPAP. MD NOTIFIED OF THIS.CALLED TO NOTIFY HER BUT NO ANSWER; VOICEMAIL LEFT FOR RETURN CALL.
[2021-03-22 23:47] VITALS: BP 121/65
[2021-03-23 01:05] VITALS: BP 111/60
--- NOTE | 2021-03-23 01:32 | NUR ---
REPORT RECEIVED FROM Sergio BRITT RN
--- NOTE | 2021-03-23 01:43 | NUR ---
PATIENT ARRIVED ON FLOOR VIA STRETCHER ACCOMPANIED BY Sergio BRITT RN
--- NOTE | 2021-03-23 01:45 | NUR ---
PT. BROUGHT UP TO MED SURGE FLOOR VIA STRETCHER; PT. IS STABLE.
[2021-03-23 01:50] VITALS: BP 136/75
--- NOTE | 2021-03-23 04:00 | NUR ---
PATIENT RESTING COMFORTABLY. NO APPARENT NEEDS, BEDSIDE TABLE AND CALL LIGHT WIHTHIN REACH.
[2021-03-23 05:38] LABS: HEMATOCRIT 36.5 % (39.0-50.0); HEMOGLOBIN 11.7 g/dl (14.0-18.0); MEAN CELL VOLUME 121.7 fL CALC (80.0-100.0); MEAN CORPUSCULAR HGB CONC 32.1 g/dL CAL (32.0-36.0); RED CELL DISTRI WIDTH 12.8 % (11.5-15.5)
[2021-03-23 06:10] LABS: ANION GAP 9 (6-22 (CALC)); BUN 17 mg/dL (8-23); BUN/CREATININE RATIO 31 (12-20 (CALC)); CARBON DIOXIDE 37 mmol/l (22-30); CHLORIDE 95 mmol/l (95-108); CREATININE 0.6 mg/dL (0.7-1.3); GFR > 60 ML/MIN (>=60 (CALC)); GFR FOR AFR.AMER. > 60 ML/MIN (>=60 (CALC)); POTASSIUM 4.5 mmol/l (3.5-5.1); SODIUM 136 mmol/l (137-146)
--- NOTE | 2021-03-23 07:04 | NUR ---
PT C NAD. VSS. CERTIFIED SUBSTANCE ABUSE COUNSELOR TO MONITOR. CLIFF NEB THERAPY WELL.
[2021-03-23 07:49] VITALS: BP 132/90
--- NOTE | 2021-03-23 07:49 | NUR ---
PT IN BED WHEN ENTERED ROOM. PT HAD IV CATH IN HIS HAND. PT PULLED IT OUT ON HIS OWN. PT IS ALERT AND ORIENTED BUT GETS TIMES OF CONFUSION. PT IS MINIMAL ASSIST. PT IS ON 3.5L OF O2. PT WAS UPSET UNTIL MOE [place]VIN. CALLED . HE GOT TO SPEAK TO HIS AND NOW IS CALM. VITALS AND ASSESSMENT DONE. S1 AND S2 NOTED. LUNGS CLEAR UPON ASCULTATION. BOWELS ACTIVE IN ALL 4 QUADRANTS. SKIN WARM AND DRY. BRUISES NOTED ON SKIN. NO IV. PEDAL PULSES STRONG BILATERALLY.
[2021-03-23 10:12] VITALS: BP 132/90
--- NOTE | 2021-03-23 11:50 | NUR ---
DR. TREVINO AND Lluvia SIGALA AT BEDSIDE DISCUSSING POC.
--- NOTE | 2021-03-23 12:00 | NUR ---
PT IN BED. NO DISTRESS NOTED. CALL LIGHT WITHIN REACH.
[2021-03-23] MEDS ORDERED: ZITHROMAX250 MG PO (12:20)
[2021-03-23] MEDS ORDERED: MEDDOSEPAK PO (12:20)
--- NOTE | 2021-03-23 13:45 | NUR ---
Discharge instructions given. Patient verbalizes understanding of same. Discharged in stable condition via Wheelchair to Home with staff. All belongings sent with pt.
--- NOTE | 2021-03-28 11:22 | NUR ---
PT DISCHARGED WITH INSTRUCTIONS TO CONTINUE 4 ADDITIONAL DAYS OF AZITHROMYCIN, BUT QTY 15 SENT TO PHARMACY. SPOKE WITH AZRA, DID IN FACT WANT 4 DAYS. CALLING PT TO D/C AFTER 4 DAYS
== END 2021-03-23 13:40 | disposition home or self-care (01) ==
LOC: ED 11:58 → ED-I 18:25 → ED 18:33 → MS2 18:34 → ED-I 18:34 → MS2 03-23 01:03
PROVIDERS: Physician Assistant Surgical; ADMIT Hospitalist; ATTEND Hospitalist
DX: J43.9 Emphysema, unspecified (principal); J96.12 Chronic respiratory failure with hypercapnia; J96.11 Chronic respiratory failure with hypoxia; I48.20 Chronic atrial fibrillation, unspecified; G30.9 Alzheimer's disease, unspecified; F02.80 Dementia in other diseases classified elsewhere, unspecified severity, without behavioral disturbance, psychotic disturbance, mood disturbance, and anxiety; E83.119 Hemochromatosis, unspecified; E87.2 Acidosis; E03.9 Hypothyroidism, unspecified; R79.89 Other specified abnormal findings of blood chemistry; Z79.01 Long term (current) use of anticoagulants; Z87.891 Personal history of nicotine dependence; Z20.822 Contact with and (suspected) exposure to COVID-19
CPT/HCPCS: G0378